=== PATIENT | male | born 1950 | race Caucasian/White ===

== ENCOUNTER 2023-09-23 10:22 | Emergency (ER) | payer OTHER ==
[~2023-09-23] VITALS: Ht 185.4 cm; Wt 91.7 kg
[2023-09-23 10:52] VITALS: BP 144/71; PULSE 69; RESP 17; TEMP 98.1; O2SAT 96
[2023-09-23] MEDS ORDERED: TRAM-626 PO (11:49)
[2023-09-23] MEDS ORDERED: PRED20TA2 PO (11:49)
== END 2023-09-23 11:54 | disposition home or self-care (01) ==
LOC: ER 10:22
DX: M51.16 Intervertebral disc disorders with radiculopathy, lumbar region (principal); M48.07 Spinal stenosis, lumbosacral region; Z79.899 Other long term (current) drug therapy
CPT/HCPCS: 72131